=== PATIENT | female | born 1950 | race Caucasian/White ===

== ENCOUNTER 2020-11-01 19:17 | Emergency (ER) | payer MEDICARE, OTHER ==
--- NOTE | 2020-11-01 19:55 | EDM.PDOC ---
ED HPI GENERAL MEDICAL PROBLEM - General Chief Complaint: General Stated Complaint: FELL BAD EYE INJURY Time Seen by Provider: 11/01/20 19:27 Source of Information: Reports: Patient, Family () History Limitations: Reports: No Limitations - History of Present Illness INITIAL COMMENTS - FREE TEXT/NARRATIVE: Mrs. Weinberg is a very pleasant 70-year-old woman who now presents to the ED after falling off a 3 foot ladder onto a concrete garage floor around 14:30 MT this afternoon. The fall was witnessed by her , who states that she did not lose consciousness. The patient states that she bounced off of their barbecue on the way down. She had immediate pain, and her intended to call EMS, but the patient told him not to. She developed ecchymosis and sw elling about her right eye, as well as to her anterior left knee. She has taken 1000 g of ibuprofen, and iced both areas, but has since developed generalized body aches and pain to the right side of her neck, therefore agreed to come to the ED to be evaluated. She denies having a headache. The patient takes medication for hypertension, but is not on an anticoagulant. Here in the ED, the patient's initial BP is found to be elevated at 186/75, otherwise, she is hemodynamically stable, afebrile, saturating 98% on room air. Prior to today's fall, the patient denies having a recent fever, chills, sore throat, ear pain, nasal or sinus congestion, cough, dyspnea, chest pain, palpitations, nausea, vomiting, constipation, diarrhea, abdominal pain, urinary symptoms, recent weight gain or weight loss, recent bloody bowel movements or black bowel movements, recent joint aches, headaches, or rashes. The patient's PCP is Dr. Hector Tate, at [facility]. She has not received an influenza vaccine this season, and declined an offer to get one here in the ED. Generalized Pain Score (Numeric/FACES): 4 - Related Data Allergies Allergy/AdvReac Type Severity Reaction Status Date / Time No Known Allergies Allergy Verified 11/01/20 19:30 Home Meds: Home Meds . 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) - Past Surgical History HEENT Surgical History: Reports: Cataract Surgery (bilateral), Oral Surgery (dental extractions), Tonsillectomy GI Surgical History: Reports: Appendectomy, Other (See Below) Female Surgical History: Reports: Hysterectomy (complete), Other (See Below) (salpingectomy) Social & Family History - Tobacco Use Tobacco Use Status *Q: Current Every Day Tobacco User Years of Tobacco use: 58 Packs/Tins Daily: 0.5 Packs/Tins Daily Comment: Down from 5 ppd - Caffeine Use Caffeine Use: Reports: None - Alcohol Use Alcohol Use History: No - Recreational Drug Use Recreational Drug Use: No - Living Situation & Occupation Living situation: Reports: , with Spouse Occupation: Retired ED ROS GENERAL - Review of Systems Review Of Systems: Comprehensive ROS is negative, except as noted in HPI. ED EXAM, GENERAL - Physical Exam Exam: See Below Exam Limited By: No Limitations General Appearance: Alert, WD/WN, No Apparent Distress Eye Exam: Bilateral Eye: EOMI, Normal Inspection (of both globes), Other (s/p cataract surgery) Ears: Normal External Exam, Normal Canal, Hearing Grossly Normal, Normal TMs Nose: Normal Inspection, Normal Mucosa, No Blood Throat/Mouth: Normal Inspection, Normal Lips, Normal Teeth, Normal Gums, Normal Oropharynx, Normal Voice, No Airway Compromise Head: Normocephalic, Facial Swelling (Significant ecchymosis and swelling about the right eye, with tenderness to palpation of the superior right orbit) Neck: Normal Inspection, Supple, Non-Tender (the patient reports pain to the right lateral neck), Full Range of Motion Respiratory/Chest: No Respiratory Distress, Lungs Clear, Normal Breath Sounds, No Accessory Muscle Use, Chest Non-Tender (the patient reports pain to her far left chest when she sits up, but denies pain with deep breathing, and there is no visible injury to the area, such as ecchymosis, erythema, swelling, or abrasion) Cardiovascular: Normal Peripheral Pulses, Regular Rate, Rhythm, No Edema, No Gallop, No JVD, No Murmur, No Rub Peripheral Pulses: 3+: Radial (L), Radial (R) GI/Abdominal: Normal Bowel Sounds, Soft, Non-Tender, No Organomegaly, No Distention, No Abnormal Bruit, No Mass Back Exam: Normal Inspection, Full Range of Motion, NT Extremities: Normal Range of Motion, No Pedal Edema, Normal Capillary Refill, Other (There is significant swelling and ecchymosis to the anterior left knee, however, there is painless ROM to the left knee and painless weightbearing on the left lower extremity. Neurovascular status of the left lower extremity appears to be intact.) Neurological: Alert, Oriented, CN II-XII Intact, Normal Cognition, No Motor/Sensory Deficits Psychiatric: Normal Affect Skin Exam: Warm, Dry, Intact, Normal Color, No Rash Course - Vital Signs Last Recorded V/S: Last Vital Signs Temp 36.6 C 11/01/20 19:25 Pulse 77 11/01/20 19:25 Resp 16 11/01/20 19:25 BP 186/75 H 11/01/20 19:25 Pulse Ox 98 11/01/20 19:25 - Orders/Labs/Meds Orders: Active Orders 24 hr Category Date Time Status Cervical Spine wo Cont [CT] Stat Exams 11/01/20 19:48 Taken Head wo Cont [CT] Stat Exams 11/01/20 19:48 Taken Knee 3V Lt [CR] Stat Exams 11/01/20 19:49 Taken Max Facial Sinus wo Cont [CT] Stat Exams 11/01/20 19:49 Taken CBC WITH MANUAL DIFF [HEME] Stat Lab 11/01/20 21:55 Results Labs: Laboratory Tests 11/01/20 11/01/20 11/01/20 Range/Units 21:45 21:55 21:55 WBC 11.91 H (3.98-10.04) K/mm3 RBC 5.03 (3.98-5.22) M/mm3 Hgb 15.4 (11.2-15.7) gm/dl Hct 47.0 H (34.1-44.9) % MCV 93.4 (79.4-94.8) fl MCH 30.6 (25.6-32.2) pg MCHC 32.8 (32.2-35.5) g/dl RDW Std Deviation 46.0 (36.4-46.3) fL Plt Count 308 (182-369) K/mm3 MPV 9.9 (9.4-12.3) fl PT 10.1 (9.7-12.0) SECONDS INR 0.94 APTT 23.6 (21.7-31.4) SECONDS Sodium (136-145) mEq/L Potassium (3.5-5.1) mEq/L Chloride (98-107) mEq/L Carbon Dioxide (21-32) mEq/L Anion Gap (5-15) BUN (7-18) mg/dL Creatinine (0.55-1.02) mg/dL Est Cr Clr Drug Dosing mL/min Estimated GFR (MDRD) (>60) mL/min BUN/Creatinine Ratio (14-18) Glucose (83-115) mg/dL Calcium (8.5-10.1) mg/dL Magnesium (1.8-2.4) mg/dl Total Bilirubin (0.2-1.0) mg/dL AST (15-37) U/L ALT (14-59) U/L Alkaline Phosphatase (46-116) U/L Total Protein (6.4-8.2) g/dl Albumin (3.4-5.0) g/dl Globulin gm/dL Albumin/Globulin Ratio (1-2) SARS-CoV-2 RNA (ELKE) Negative (NEGATIVE) 11/01/20 Range/Units 21:55 WBC (3.98-10.04) K/mm3 RBC (3.98-5.22) M/mm3 Hgb (11.2-15.7) gm/dl Hct (34.1-44.9) % MCV (79.4-94.8) fl MCH (25.6-32.2) pg MCHC (32.2-35.5) g/dl RDW Std Deviation (36.4-46.3) fL Plt Count (182-369) K/mm3 MPV (9.4-12.3) fl PT (9.7-12.0) SECONDS INR APTT (21.7-31.4) SECONDS Sodium 144 (136-145) mEq/L Potassium 3.9 (3.5-5.1) mEq/L Chloride 106 (98-107) mEq/L Carbon Dioxide 30 (21-32) mEq/L Anion Gap 11.9 (5-15) BUN 13 (7-18) mg/dL Creatinine 1.1 H (0.55-1.02) mg/dL Est Cr Clr Drug Dosing 41.60 mL/min Estimated GFR (MDRD) 49 (>60) mL/min BUN/Creatinine Ratio 11.8 L (14-18) Glucose 115 (83-115) mg/dL Calcium 10.4 H (8.5-10.1) mg/dL Magnesium 2.0 (1.8-2.4) mg/dl Total Bilirubin 0.6 (0.2-1.0) mg/dL AST 21 (15-37) U/L ALT 22 (14-59) U/L Alkaline Phosphatase 60 (46-116) U/L Total Protein 8.3 H (6.4-8.2) g/dl Albumin 3.9 (3.4-5.0) g/dl Globulin 4.4 gm/dL Albumin/Globulin Ratio 0.9 L (1-2) SARS-CoV-2 RNA (ELKE) (NEGATIVE) Meds: Medications Discontinued Medications Generic Name Dose Route Start Last Admin Trade Name Freq PRN Reason Stop Dose Admin Acetaminophen 650 mg 11/01/20 22:23 Tylenol PO 11/01/20 22:24 NOW ONE Labetalol HCl 20 mg 11/01/20 22:28 Normodyne IVPUSH 11/01/20 22:29 ONETIME ONE Protocol - Re-Assessments/Exams Free Text/Narrative Re-Assessment/Exam: 11/01/20 19:50 As above, the patient fell off a 3 foot ladder around 14:30 this afternoon, striking her right face and left knee. The fall was witnessed by her , who reports that she did not lose consciousness. She has significant ecchymosis about the right eye, along with tenderness to palpation of the superior orbit, although her right eye itself appears to be normal, with no injection, and painless ROM. She is also complaining to some pain to the right side of her neck, and she has substantial ecchymosis and swelling to her anterior left knee, although good range of motion of the knee, and painless weightbearing. I have ordered a CT of the head, face, and cervical spine without contrast, along with x-rays of the left knee. Because the patient has no significant medical issues, and was in good health up until she fell, I do not see an indication for blood work at this time. 11/01/20 21:34 3-view radiographs of the left knee appear to demonstrate osteopenia and arthritic changes, including bone spurs, however, no acute abnormality such as a fracture or dislocation is identified. Arterial sclerosis noted. Formal read per the Radiologist pending. 11/01/20 21:39 CT of the cervical spine without contrast is read by [facility] as: 1. Negative for acute skeletal pathology. 2. Incidental findings as detailed above. 11/01/20 21:46 CT of the head without contrast is read by [facility] as: 1. Moderate amount of right frontal lobe posttraumatic subarachnoid hemorrhage. 2. Left frontal acute subdural hematoma which extends and layers throughout the anterior falx, as detailed above. 3. Small amount of left subdural hemorrhage in the left temporal and parietal region. 4. Small amount of subdural hemorrhage layering throughout the left tentorial membrane. 5. Mild mass-effect upon the left cerebral hemisphere caused by the left subdural hemorrhage. 6. 4 mm left to right midline shift. 7. Right periorbital posttraumatic soft tissue swelling. Based on the above, I have ordered a CBC, CMP, magnesium level, coags, and a swab for the SARS-CoV-2 virus. 11/01/20 21:51 CT maxillofacial without contrast is read by [facility] as: 1. Right periorbital posttraumatic soft tissue swelling. 2. Mild right maxillary sinusitis. 3. Negative for acute skeletal pathology. 4. Please review head CT performed concomitantly for other important findings. The above findings were discussed with the patient and her . I recommended transfer to [place]. The patient is adamant that she not be transferred to [facility], citing a financial disagreement with them. The CT and x-ray images were pushed to [facility] at 21:50. 11/01/20 21:53 Notified that [facility] is currently occupied, and will call us back in about 10 minutes. 11/01/20 22:17 Case discussed with Nieves at [facility] at 22:07. Case then discussed with Drs. Lopez, Emergency Physician at [facility], and Dr. Montes, Neurosurgeon at [facility], at 22:14. Dr. Lopez accepted the patient for transfer to their ED, and Dr. Montes agreed that it is important that the patient be transported by ambulance. 11/01/20 22:23 The above was discussed with the patient and her . She has reluctantly agreed to go by ground ambulance. She reports having a bifrontal headache at this time. I will order some Tylenol, but otherwise keep her n.p.o. 11/01/20 22:28 The patient's current BP is 224/79, with a HR in the 80s. I have ordered 20 mg IV labetalol. 11/01/20 22:33 The patient's CBC is remarkable for mild leukocytosis of 11.91, and a Hct slightly elevated at 47.0, with a Hgb normal at 15.4, and the remainder of her CBC being unremarkable. Her CMP is remarkable for a Cr slightly elevated at 1.1, with a BUN normal at 13, and the remainder of her CMP being unremarkable. Her magnesium level is within normal limits at 2.0. Her coags are within normal limits. Her swab for the SARS-CoV-2 virus has returned negative. Departure - Departure Time of Disposition: 22:24 Disposition: DC/Tfer to [facility] 02 Condition: Fair Clinical Impression: Traumatic intracranial hemorrhage - Discharge Information *PRESCRIPTION DRUG MONITORING PROGRAM REVIEWED*: Not Applicable *COPY OF PRESCRIPTION DRUG MONITORING REPORT IN PATIENT SUDEEP: Not Applicable Referrals: Hector Tate MD [Resident] - Forms: ED Department Discharge Sepsis Event Note (ED) - Evaluation Sepsis Screening Result: No Definite Risk - Focused Exam Vital Signs: Vital Signs Temp Pulse Resp BP Pulse Ox 11/01/20 19:25 36.6 C 77 16 186/75 H 98 - My Orders Last 24 Hours: My Active Orders 11/01/20 19:48 Cervical Spine wo Cont [CT] Stat Head wo Cont [CT] Stat 11/01/20 19:49 Knee 3V Lt [CR] Stat Max Facial Sinus wo Cont [CT] Stat 11/01/20 21:55 CBC WITH MANUAL DIFF [HEME] Stat - Assessment/Plan Last 24 Hours: My Active Orders 11/01/20 19:48 Cervical Spine wo Cont [CT] Stat Head wo Cont [CT] Stat 11/01/20 19:49 Knee 3V Lt [CR] Stat Max Facial Sinus wo Cont [CT] Stat 11/01/20 21:55 CBC WITH MANUAL DIFF [HEME] Stat
[2020-11-01] MEDS ORDERED: Acetaminophen 325 MG Tab PO ONE (22:23)
[2020-11-01] MEDS ORDERED: Labetalol 100 MG/20 ML MDV IVPUSH ONE (22:28)
--- NOTE | 2020-11-02 08:43 | CT ---
CT cervical spine Technique: Multiple axial sections were obtained from above the dome of the diaphragm inferiorly to the bottom of T5. Reconstructed coronal and sagittal images were obtained. Comparison: No prior cervical spine imaging is available. Findings: Scattered disc space narrowing is noted most prominent at C6-7 which shows fairly severe disc space narrowing. Posterior osteophytes are also noted at C6-7. Diffuse anterior osteophytes are noted most prominent C5-6 through T1-2. Diffuse degenerative apophyseal change is seen throughout the cervical spine and upper thoracic spine. Degenerative change is noted between the dens and anterior arch of C1. Osteopenia is seen. No acute fracture is seen within the cervical spine or upper thoracic spine. Mild scattered areas of neural foraminal narrowing is seen. No central canal stenosis is appreciated. No abnormal subluxation is appreciated. Vascular calcification is seen within the neck. Impression: 1. Degenerative change as noted above. 2. Nothing acute is appreciated on CT study of the cervical spine. Diagnostic code #2 I agree with preliminary report from [facility], finalized on 11/01/20, 10:36 PM MANAGER STUDIO
--- NOTE | 2020-11-02 08:50 | CT ---
Head CT Technique: Multiple axial sections to the brain were obtained. Intravenous contrast was utilized. Reconstructed coronal and sagittal images were also obtained. Comparison: No prior exam is available. Findings: Subarachnoid hemorrhage is seen within the posterior right frontal convexity. There is diffuse and small subdural hematoma seen throughout the left side. There is subdural hematoma seen along the anterior interhemispheric falx on the left side. The falx cerebral hemorrhage has a thickness of about 1 cm. There is minimal midline shift being seen by about 2.5 mm. No additional intracranial hemorrhage is seen. Small amount of mucosal thickening and possible fluid is seen within the right maxillary sinus. Mastoid sinuses show nothing acute. No acute calvarial abnormality is noted. There is atherosclerotic change noted within the carotid siphon. Soft tissue swelling is noted within the right periorbital region. Impression: 1. Left-sided subdural hematoma. 2. Subdural hematoma along the left side of the interhemispheric falx anteriorly. 3. Small amount of subarachnoid blood within the posterior right frontal region. 4. Soft tissue swelling of the other incidental findings as noted above. Diagnostic code #5 I agree with preliminary report from [facility], finalized on 11/01/20, 10:44 PM CNC SPECIALIST
--- NOTE | 2020-11-02 08:51 | CR ---
Left knee: 3 views of the left knee were obtained. Comparison: No prior knee study is available. Vascular calcification is noted. Spur is noted off the superior patella at the attachment of the quadriceps tendon. Mild medial joint space narrowing is seen. Small osteophytes are seen at the medial and lateral knee. Osteopenia is noted. No acute fracture or dislocation is seen. Soft tissue swelling is noted. Impression: 1. Osteopenia and mild degenerative change. 2. Vascular calcification and soft tissue swelling. 3. No acute osseous abnormality is appreciated. Diagnostic code #2
--- NOTE | 2020-11-02 08:53 | CT ---
CT facial bones Technique: Multiple axial sections through the facial bones were obtained. Reconstructed coronal and sagittal images were obtained. No intravenous contrast was utilized. Findings: Mild mucosal thickening within the right maxillary sinus is seen and difficult to exclude a small amount of fluid within the sinus. Other portions of the paranasal sinuses appear within normal limits. Visualized mastoid sinuses show nothing acute. Atherosclerotic calcification is seen within the carotid siphon. Diffuse soft tissue swelling is noted around the right periorbital region. No facial bone fracture is appreciated. Right and left globes are symmetric. No retrobulbar abnormality is appreciated. Impression: 1. Soft tissue swelling. 2. Mild sinus findings as noted above. 3. No acute fracture seen within the facial structures. Diagnostic code #2 I agree with preliminary report from 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
== END 2020-11-01 22:50 ==
LOC: JD.ED 19:17
DX: S06.300A Unspecified focal traumatic brain injury without loss of consciousness, initial encounter (principal); S05.11XA Contusion of eyeball and orbital tissues, right eye, initial encounter; S80.02XA Contusion of left knee, initial encounter; I10 Essential (primary) hypertension; Z72.0 Tobacco use; Z20.822 Contact with and (suspected) exposure to COVID-19; W11.XXXA Fall on and from ladder, initial encounter
CPT/HCPCS: 36415; 70450; 70486; 72125; 73562; 80053; 83735; 85007; 85027; 85610; 85730; 96374; 99285; A9270; J3490; U0002

== ENCOUNTER 2021-02-17 12:01 | Emergency (ER) | payer MEDICARE, OTHER ==
--- NOTE | 2021-02-17 12:48 | CT ---
Head CT Technique: Multiple axial sections through the brain were obtained. Intravenous contrast was not utilized. Reconstructed coronal and sagittal images were obtained. Comparison: Prior head CT study of 11/01/20. Findings: Prior study showed evidence of intracranial hemorrhage which has resolved in the interim from prior exam. Ventricles along with basal cisterns and sulci over the convexities are within normal limits for the patient's age. No abnormal parenchymal densities are seen. No evidence of intracranial hemorrhage is seen. No midline shift or mass-effect is seen. Bone window settings were reviewed which show the visualized paranasal sinuses and mastoid sinuses to appear clear. No acute calvarial abnormality is appreciated. Atherosclerotic calcification is seen within the vertebral vessels and within the carotid siphon. Impression: 1. Prior intracranial hemorrhage as noted on old study which has resolved in the interim. 2. Slight senescent change as noted above. 2. No acute intracranial abnormality is appreciated. Diagnostic code #2
--- NOTE | 2021-02-17 13:43 | EDM.PDOC ---
ED HPI GENERAL MEDICAL PROBLEM - General Chief Complaint: Neuro Symptoms/Deficits Stated Complaint: SENT BY [facility] Time Seen by Provider: 02/17/21 12:25 Source of Information: Reports: Patient, RN Notes Reviewed - History of Present Illness INITIAL COMMENTS - FREE TEXT/NARRATIVE: 70 yr old female with onset of R facial droop this AM, was fine last evening. No Has not been recently ill. No other focal weakness, no speech difficulty, no numbness or tingling. Hx of some type of "brain bleed" a couple of months ago. No Nathan, nausea or vomiting. - Related Data Allergies Allergy/AdvReac Type Severity Reaction Status Date / Time No Known Allergies Allergy Verified 02/17/21 12:19 Home Meds: Home Meds Ascorbic Acid [Vitamin C] 1,000 mg PO DAILY 02/17/21 [History] Ascorbic Acid/Vitamin E/Biotin [Hair Skin Nails-Biotin Gummies] 1 each PO DAILY 02/17/21 [History] Cholecalciferol (Vitamin D3) [Vitamin D3] 50 mcg PO DAILY 02/17/21 [History] Cholecalciferol (Vitamin D3) [Vitamin D] 1,000 unit PO DAILY 02/17/21 [History] Clopidogrel [Plavix] 75 mg PO DAILY 02/17/21 [History] Denosumab [Prolia] 1 injection INJECT ASDIRECTED 02/17/21 [History] Losartan [Cozaar] 50 mg PO DAILY 02/17/21 [History] Vitamin E 450 unit PO DAILY 02/17/21 [History] amLODIPine [Norvasc] 10 mg PO DAILY 02/17/21 [History] hydroCHLOROthiazide [Hydrochlorothiazide] 25 mg PO DAILY 02/17/21 [History] predniSONE [Prednisone] 50 mg PO DAILY #7 tablet 02/17/21 [Rx] valACYclovir HCl [valACYclovir] 1,000 mg PO TID #20 tablet 02/17/21 [Rx] Past Medical History Cardiovascular History: Reports: Hypertension 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 Female Surgical History: Reports: Hysterectomy, Other (See Below) Social & Family History - Tobacco Use Tobacco Use Status *Q: Current Every Day Tobacco User Years of Tobacco use: 58 Packs/Tins Daily: 1 - Caffeine Use Caffeine Use: Reports: None - Recreational Drug Use Recreational Drug Use: No - Living Situation & Occupation Living situation: Reports: , with Spouse Occupation: Retired ED ROS GENERAL - Review of Systems Review Of Systems: See Below Constitutional: Denies: Fever, Chills, Diaphoresis HEENT: Denies: Dental Pain, Sinus Problem, Vertigo, Vision Change Respiratory: Denies: Shortness of Breath, Pleuritic Chest Pain Cardiovascular: Denies: Chest Pain GI/Abdominal: Denies: Abdominal Pain, Nausea, Vomiting Musculoskeletal: Denies: Neck Pain, Shoulder Pain, Arm Pain Skin: Denies: Rash Neurological: Reports: Other (R facial droop). Denies: Headache, Numbness, Tingling, Trouble Speaking, Weakness ED EXAM, NEURO - Physical Exam Exam: See Below General Appearance: Alert, No Apparent Distress Eye Exam: Bilateral Eye: PERRL Ears: Normal External Exam Nose: Normal Inspection Throat/Mouth: Normal Oropharynx Head Exam: Atraumatic Neck: Supple Respiratory/Chest: No Respiratory Distress, Lungs Clear, Normal Breath Sounds Cardiovascular: Regular Rate, Rhythm Neurological: Alert, No Motor/Sensory Deficits, Oriented x 3, Other (R facial droop, no drift upper extrem, finger to nose normal) Extremities: Normal Inspection, Normal Range of Motion Skin Exam: Warm, Dry, Normal Color Course - Vital Signs Last Recorded V/S: Last Vital Signs Temp 97.4 F 02/17/21 12:14 Pulse 82 02/17/21 12:14 Resp 16 02/17/21 12:14 BP 146/68 H 02/17/21 12:14 Pulse Ox 98 02/17/21 12:14 - Orders/Labs/Meds Labs: Laboratory Tests 02/17/21 Range/Units 12:18 POC Glucose 127 H (70-99) mg/dL - Re-Assessments/Exams Free Text/Narrative Re-Assessment/Exam: 02/17/21 16:[address] no acute findings. Discharge instr. as documented. Departure - Departure Time of Disposition: 13:38 Disposition: Home, Self-Care 01 Condition: Fair Clinical Impression: Rivera's palsy - Discharge Information Prescriptions: predniSONE [Prednisone] 50 mg PO DAILY #7 tablet valACYclovir HCl [valACYclovir] 1,000 mg PO TID #20 tablet Instructions: Rivera Palsy, Adult Referrals: Hector Tate MD [Primary Care Provider] - Forms: ED Department Discharge Additional Instructions: Prednsone 50 mg daily for 7 days. Valacyclovir 1000 mg 3 times daily for 1 week. Prescriptions have been sent to the [facility]. Tape or patch R upper eyelid shut at night if needed. Follow up [facility] for recheck in about 10 to 14 days, call for appt. Return to ED as needed if symptoms worsening in any way. Sepsis Event Note (ED) - Evaluation Sepsis Screening Result: No Definite Risk - Focused Exam Vital Signs: Vital Signs Temp Pulse Resp BP Pulse Ox 02/17/21 12:14 97.4 F 82 16 146/68 H 98
== END 2021-02-17 14:10 | disposition home or self-care (01) ==
LOC: JD.ED 12:01
DX: G51.0 Bell's palsy (principal); I10 Essential (primary) hypertension; Z72.0 Tobacco use; Z86.73 Personal history of transient ischemic attack (TIA), and cerebral infarction without residual deficits; Z79.899 Other long term (current) drug therapy
CPT/HCPCS: 70450; 70450-26; 82947; 99283; 99284-25